=== PATIENT | female | born 1960 | race Caucasian/White ===

== ENCOUNTER → 2017-03-28 | Outpatient (CLI) | payer OTHER | END | disposition home or self-care (01) | LOC: RADPV 10:14 | PROVIDERS: ATTEND Internal Medicine Nephrology | DX: N28.1 Cyst of kidney, acquired (principal) | CPT/HCPCS: 76770 ==

== ENCOUNTER 2023-02-17 06:28 | Emergency (ER) | payer OTHER ==
[~2023-02-17] VITALS: Ht 162.6 cm; Wt 90.0 kg
[2023-02-17 06:33] VITALS: BP 126/56; PULSE 78; RESP 19; TEMP 97.9
[2023-02-17] MEDS ORDERED: PRED-554 PO (07:00)
[2023-02-17] MEDS ORDERED: PredniSONE 20 MG TABLET PO ONE (07:00)
[2023-02-17] MEDS ORDERED: DIPH-1243 PO (07:00)
== END 2023-02-17 07:07 | disposition home or self-care (01) ==
LOC: EMS 06:28
DX: T78.40XA Allergy, unspecified, initial encounter (principal); I10 Essential (primary) hypertension; X58.XXXA Exposure to other specified factors, initial encounter
CPT/HCPCS: 99283; J7512

== ENCOUNTER 2023-04-22 06:40 | Emergency (ER) | payer OTHER ==
[~2023-04-22] VITALS: Ht 165.1 cm; Wt 86.4 kg
[~2023-04-22 06:40] MED LIST: DIPH-1243 PO; PRED-554 PO
[2023-04-22] MEDS ORDERED: LOSA-382 PO (06:59)
[2023-04-22 07:00] VITALS: BP 115/70; PULSE 66; RESP 18; TEMP 97.8
[2023-04-22] MEDS ORDERED: PRED-554 PO (07:05)
[2023-04-22] MEDS ORDERED: DiphenhydrAMINE HCL 50 MG CAPSULE PO ONE (07:15)
[2023-04-22] MEDS ORDERED: PredniSONE 20 MG TABLET PO ONE (07:15)
== END 2023-04-22 07:25 | disposition home or self-care (01) ==
LOC: EMS 06:41
DX: T78.40XA Allergy, unspecified, initial encounter (principal); I10 Essential (primary) hypertension; Z98.890 Other specified postprocedural states; X58.XXXA Exposure to other specified factors, initial encounter
CPT/HCPCS: 99283; J7512

== ENCOUNTER 2023-08-29 23:02 | Emergency (ER) | payer OTHER ==
[~2023-08-29] VITALS: Ht 167.6 cm; Wt 90.0 kg
[~2023-08-29 23:02] MED LIST changes: -DIPH-1243 PO; +LOSA-382 PO
[2023-08-29 23:28] LABS: BASOPHILS % (AUTO) 0.7 % (0.0-2.0); EOSINOPHILS % (AUTO) 1.4 % (1.0-6.0); HEMATOCRIT 40.5 % (36-46); HEMOGLOBIN 13.6 g/dL (12.0-16.0); LYMPHOCYTES # (AUTO) 2.9 K/uL (1.0-4.8); MEAN CORPUSCULAR HEMOGLOBIN 29.4 pg (26.0-34.0); MEAN CORPUSCULAR HGB CONC 33.6 G/dL (31.0-37.0); MEAN CORPUSCULAR VOLUME 87 fL (80-100); MONOCYTES # (AUTO) 1.1 K/uL (0.1-1.0); MONOCYTES % (AUTO) 7.6 % (2.0-9.0); NEUTROPHILS # (AUTO) 10.1 K/uL (1.8-7.7); NEUTROPHILS % (AUTO) 70.3 % (40.0-70.0); PLATELET COUNT (AUTO) 324 K/uL (150-450); RED BLOOD CELL COUNT(AUTO) 4.64 MIL/uL (4.00-5.20); RED CELL DISTRIBUTION WIDTH 13.1 % (11.5-14.5); WHITE BLOOD COUNT (AUTO) 14.4 K/uL (4.5-11.0)
[2023-08-29 23:37] LABS: ANION GAP 10 mmol/L (8-16); CALCIUM, TOTAL 9.6 mg/dL (8.8-10.5); CARBON DIOXIDE 31 mmol/L (22-29); CHLORIDE 99 mmol/L (98-107); CREATININE 0.69 mg/dL (0.60-1.30); GLOMERULAR FILTR. RATE CALC > 60 mL/min (>60); GLUCOSE,RANDOM 107 mg/dL (70-110); POTASSIUM 3.5 mmol/L (3.5-5.1); SODIUM SERUM 140 mmol/L (136-145); UREA NITROGEN, BLOOD 16 mg/dL (7-18)
[2023-08-29 23:42] LABS: APPEARANCE,URINE CLEAR (CLEAR); BILIRUBIN,URINE NEGATIVE (NEGATIVE); COLOR,URINE YELLOW (YELLOW); GLUCOSE, URINE (UA) NEGATIVE (NEGATIVE); KETONES,URINE NEGATIVE (NEGATIVE); LEUKOCYTE ESTERASE ,URINE NEGATIVE (NEGATIVE); NITRATE,URINE NEGATIVE (NEGATIVE); OCCULT BLOOD,URINE NEGATIVE (NEGATIVE); PH,URINE 7.5 (5.0-8.0); PROTEIN,URINE NEGATIVE (NEGATIVE); UROBILINOGEN,URINE <=1.0 mg/dL (<=1.0)
[2023-08-29 23:43] LABS: ALANINE AMINOTRANSFERASE 23 U/L (12-78); ALBUMIN 3.9 g/dL (3.4-5.0); ALKALINE PHOSPHATASE 102 U/L (46-116); ASPARTATE AMINOTRANSFERASE 18 U/L (15-37); BILIRUBIN,TOTAL 0.4 mg/dL (0.1-1.0); LIPASE 19 U/L (16-77)
[2023-08-29 23:47] LABS: TROPONIN I-HIGH SENSITIVITY 4 ng/L (<51)
[2023-08-30 02:26] VITALS: BP 126/64; PULSE 72; RESP 18; TEMP 98
[2023-08-30] MEDS ORDERED: PEG 3350/NA SULF,BICARB,CL/KCL 4000 ML SOLUTION PO ONE (03:00)
[2023-08-30] MEDS ORDERED: ACET-66 PO (15:16)
[2023-08-30] MEDS ORDERED: CEPH-558 PO (15:16)
[2023-08-30] MEDS ORDERED: ONDA-104 PO (15:16)
[2023-08-30] MEDS ORDERED: CIPR500T10 PO (15:18)
== END 2023-08-30 04:43 | disposition home or self-care (01) ==
LOC: EMS 23:09
DX: K59.00 Constipation, unspecified (principal); I10 Essential (primary) hypertension; Z98.890 Other specified postprocedural states
CPT/HCPCS: 74176; 80053; 81003; 83690; 84484; 85025; 99284